=== PATIENT | male | born 1955 | race Caucasian/White ===

== ENCOUNTER 2024-11-17 14:37 | Inpatient (IN) | payer MEDICARE, BC, SELFPAY ==
[2024-11-17 14:44] VITALS: BP 123/75; PULSE 98; TEMP 36.9; O2SAT 97; BMI 22.2
--- NOTE | 2024-11-17 15:18 | ED.GENADUL1 ---
HPI HPI - General Adult General Chief complaint: Extremity Problem, Nontraumatic Stated complaint: R ANKLE SWELLING Time Seen by Provider: 11/17/24 15:12 Source: patient Mode of arrival: Wheelchair History of Present Illness HPI narrative: Patient is a 68-year-old male who has insulin-dependent diabetes that presents to the emergency department with complaints of 3 days of right ankle swelling and redness. He denies any trauma, scratches, abrasions, or wounds. He states he was watching football on Friday and woke up and his ankle look like this. The redness has not increased in 3 days. He denies any history of blood clots and does not take any antiplatelets or anticoagulation. He has not had any recent surgery and is not on any hormones. He denies any fever, night sweats, or chills at home. Related Data Home Medications ?Medication ?Instructions ?Recorded ?Confirmed folic acid 400 mcg DAILY 11/17/24 insulin degludec 100 unit/mL (3 50 unit subcut DAILY 11/17/24 11/17/24 mL) subcutaneous pen (Tresiba FlexTouch U-100 insulin) lisinopril 10 mg tablet 10 mg PO DAILY 11/17/24 11/17/24 methotrexate sodium 2.5 mg tablet 10 mg PO QWEEK 11/17/24 multivitamin-ferrous 1 tab PO DAILY 11/17/24 11/17/24 fumarate-folic acid 18 mg-400 mcg tablet (Daily Vitamin Formula-Iron) rosuvastatin 20 mg tablet (Crestor) 20 mg PO DAILY 11/17/24 11/17/24 sertraline 100 mg tablet 100 mg PO DAILY 11/17/24 Allergies Allergy/AdvReac Type Severity Reaction Status Date / Time No Known Drug Allergies Allergy Verified 11/17/24 14:49 Review of Systems ROS Status of ROS 10 or more systems reviewed and unremarkable except as noted in history and below [facility] Medical History (Updated 11/17/24 @ 18:27 by ROXY Albrecht) Neuropathy ?G62.9 - Polyneuropathy, unspecified (ICD-10) Skin cancer ?C44.90 - Unspecified malignant neoplasm of skin, unspecified (ICD-10) 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 No rash. Head: Normocephalic, atraumatic. Neck: Supple, non-tender. Eye: Pupils are equal, round and EOMI. No scleral icterus. Ears, Nose, Mouth, and Throat: No nasal mucosal hypertrophy. Oral mucosa is moist, no posterior oropharynx erythema, uvula is mid-line Cardiovascular: Regular Rate and Rhythm without murmur, gallop or rub. Respiratory: No accessory muscle use or respiratory distress. Lungs are clear to auscultation, no wheezing, rales or rhonchi Chest Wall: no tenderness Musculoskeletal: Full ROM of all extremities, edema right lower extremity starting at about the asif to the midfoot, erythema at the ankle medially that wraps around the heel, does not involve much of the foot. Pain with palpation of the right calf. No palpable cords. GI: Abdomen is soft, non-distended, non tender to palpation. No masses appreciated. No rebound, guarding, or rigidity noted. Neurological: A&O x4. No cranial nerve dysfunction observed. No truncal ataxia. Moves all extremities. Sensation intact. Psychiatric: Cooperative and interactive. Normal mood and affect. Constitutional Vital Signs, click to edit/add: Last Vital Signs Temp 98.4 F 11/17/24 14:44 Pulse 98 H 11/17/24 14:44 Resp 18 11/17/24 14:44 BP 123/75 11/17/24 14:44 Pulse Ox 97 11/17/24 14:44 O2 Del Method Room Air 11/17/24 14:44 Course Vital Signs Vital signs: Vital Signs Temperature 98.4 F 11/17/24 14:44 Pulse Rate 98 H 11/17/24 14:44 Respiratory Rate 18 11/17/24 14:44 Blood Pressure 123/75 11/17/24 14:44 Pulse Oximetry 97 11/17/24 14:44 Oxygen Delivery Method Room Air 11/17/24 14:44 Temperature 98.4 F 11/17/24 14:44 Pulse Rate 98 H 11/17/24 14:44 Respiratory Rate 18 11/17/24 14:44 Blood Pressure 123/75 11/17/24 14:44 Pulse Oximetry 97 11/17/24 14:44 Oxygen Delivery Method Room Air 11/17/24 14:44 Medical Decision Making [facility] Narrative Medical decision making narrative: This is a 68-year-old male insulin dependent diabetic that presented to the emergency department with complaints of 3 days of right ankle erythema and swelling. He denies any trauma, scratches, abrasions, or wounds to the leg. He denies any fever, night sweats, or chills. On Friday the redness appeared to the medial side of his ankle and he states has not changed/increased/spread since then. On exam patient is in no distress, sitting up on the ED cart. Vitals are stable. Temperature is afebrile at 98.4. There is unilateral edema in the right lower leg starting about mid asif into the foot. There is erythema medially at the ankle that extends to the top of the heel somewhat. There is pain with palpation of the calf, no palpable cords. CBC/BMP and RLE Doppler ultrasound ordered. Differential diagnosis includes: Cellulitis, DVT, gout, septic arthritis, Charcot joint Ultrasound of the right lower extremity with a nonocclusive thrombus seen in the deep femoral vein, as well as the saphenofemoral junction and proximal to mid calf small saphenous vein. I did discuss labs and imaging results with patient and his at bedside. All questions were answered. We are recommending admission for IV antibiotics and patient is agreeable. I did speak with Dr. Looney who accepted patient for observation status. Right lower extremity cellulitis - Started 3 days ago, no wounds, scratches, abrasions, or trauma - X-ray of right foot?no subcutaneous air, no signs of acute osteomyelitis - Afebrile - WBC 18.3, left shift - Lactate WNL at 1.3 - Blood cultures drawn - Vital stable during ED course - Dose of Vanco given in emergency department DVT - Nonocclusive thrombus deep femoral vein, saphenofemoral junction and proximal to mid calf small saphenous vein - Hgb on arrival 11.6 - Dose of Lovenox given in ED 1 mg/kg = 70 JOSE - BUN/CR: 33/1.65 - Per baseline is within normal limits, patient has had issues with his kidney function in the past secondary to his diabetes -1 L normal saline given in ED Hyponatremia -NA 132 Patient's vitals remained stable in the emergency department. Patient admitted to medicine for IV antibiotics, anticoagulation, and monitoring of renal function. Lab Data Lab results reviewed: Yes I reviewed the patient's lab results Labs: Lab Results 11/17/24 Range/Units 16:14 WBC 18.3 H (4.0-11.0) 10^3/uL RBC 4.18 L (4.70-6.10) 10^6/uL Hgb 11.6 L (14.0-18.0) g/dL Hct 34.8 L (42.0-54.0) % MCV 83.3 (80.0-94.0) fL MCH 27.8 (25.9-34.0) pg MCHC 33.3 (29.9-35.2) g/dL RDW 12.3 (11.0-15.0) % Plt Count 357 (150-450) 10^3/uL MPV 8.8 L (9.5-13.5) fL Neut % (Auto) 84.3 H (43.0-75.0) % Lymph % (Auto) 6.8 L (20.5-60.0) % [place] % (Auto) 7.8 (1.7-12.0) % Eos % (Auto) 0.2 L (0.9-7.0) % Baso % (Auto) 0.3 (0.2-2.0) % Neut # (Auto) 15.5 H (1.4-6.5) 10^3/uL Lymph # (Auto) 1.3 (1.2-3.8) 10^3/uL [place] # (Auto) 1.4 H (0.3-0.8) 10^3/uL Eos # (Auto) 0.0 (0.0-0.7) 10^3/uL Baso # (Auto) 0.1 (0.0-0.1) 10^3/uL Abs Immat Gran (auto) 0.11 H (0.00-0.03) 10^3/uL Imm/Tot Granulo (auto) 0.6 H (0.0-0.5) % Sodium 132 L (136-145) mmol/L Potassium 4.4 (3.5-5.1) mmol/L Chloride 96 L (98-107) mmol/L Carbon Dioxide 25.6 (21.0-32.0) mmol/L Anion Gap 14.8 BUN 33.0 H (7.0-18.0) mg/dL Creatinine 1.65 H (0.70-1.30) mg/dL Est GFR ( Amer) 50 L (>=60 mL/min/1.73m^2) Est GFR (Non-Af Amer) 42 L (>=60 mL/min/1.73m^2) BUN/Creatinine Ratio 20.0 Glucose 180 H (74-106) mg/dL Lactate 1.3 (0.4-2.0) mmol/L Calcium 9.0 (8.5-10.1) mg/dL Total Bilirubin 0.6 (0.2-1.0) mg/dL AST 14 L (15-37) U/L ALT 18 (16-63) U/L Alkaline Phosphatase 99 (46-116) U/L Total Protein 8.1 (6.4-8.2) g/dL Albumin 2.4 L (3.4-5.0) g/dL Globulin 5.7 g/dL Albumin/Globulin Ratio 0.4 Imaging Data Right Foot X-Ray: Attestation: I have reviewed the pertinent imaging results. Radiologist's impression: ITS Impressions Foot X-Ray 11/17/24 16:55 IMPRESSION: No plain film findings of acute osteomyelitis. Impression dictated by: Kamran Hearn M.D. 11/17/2024 6:00 PM Dictation Location: [place] [address] Electronically authenticated by: [id number] Y Date: 11/17/2024 18:00 Discharge Plan Discharge Chief Complaint: Extremity Problem, Nontraumatic Clinical Impression: Cellulitis, Deep vein thrombosis of lower extremity, JOSE (acute kidney injury) Patient Disposition: Admitted as Observation Time of Disposition Decision: 18:27 Condition: Fair
[2024-11-17 16:20] LABS: Hematocrit 34.8 % (42.0-54.0); Hemoglobin 11.6 g/dL (14.0-18.0); Immature Granulocytes Abs Auto 0.11 10^3/uL (0.00-0.03); Immature Granulocytes Pct Auto 0.6 % (0.0-0.5); Lymphocytes Absolute Auto 1.3 10^3/uL (1.2-3.8); Mean Corpuscular HGB Conc 33.3 g/dL (29.9-35.2); Mean Corpuscular Hemoglobin 27.8 pg (25.9-34.0); Mean Corpuscular Volume 83.3 fL (80.0-94.0); Platelet Count 357 10^3/uL (150-450); Red Blood Count 4.18 10^6/uL (4.70-6.10); White Blood Count 18.3 10^3/uL (4.0-11.0)
[2024-11-17 16:46] LABS: Alanine Aminotransferase 18 U/L (16-63); Albumin Globulin Ratio 0.4; Albumin Level 2.4 g/dL (3.4-5.0); Alkaline Phosphatase 99 U/L (46-116); Anion Gap 14.8; Aspartate Amino Transferase 14 U/L (15-37); Blood Urea Nitrogen 33.0 mg/dL (7.0-18.0); Calcium 9.0 mg/dL (8.5-10.1); Carbon Dioxide 25.6 mmol/L (21.0-32.0); Chloride 96 mmol/L (98-107); Estimated GFR (African America 50 (>=60 mL/min/1.73m^2); Estimated GFR (Non-African Ame 42 (>=60 mL/min/1.73m^2); Globulin 5.7 g/dL; Glucose 180 mg/dL (74-106); Potassium 4.4 mmol/L (3.5-5.1); Sodium 132 mmol/L (136-145); Total Protein 8.1 g/dL (6.4-8.2)
--- NOTE | 2024-11-17 16:55 | XR_ITS ---
[address] [address] Patient Name: CODIE GROSS MRN: [id number] date: 1955 Sex: M Assigned Patient Location: ER Current Patient Location: ER Accession/Order Number: [id number] Exam Date: 11/17/2024 17:23 Report Date: 11/17/2024 18:00 At the request of: MAYURI RAMSEY Procedure: XR foot RT min 3V 3 views right foot plain film COMPARISON:None HISTORY: Right foot pain and swelling. 3 days duration. ACUTE FINDINGS: Old fracture involving the second metatarsal. DEGENERATIVE CHANGE: Calcaneal spurring moderate degenerative change SOFT TISSUE FINDINGS: No subcutaneous air. No radiodense foreign body. JOINT EFFUSION: None POSTOP CHANGES: None BONE MINERALIZATION: Adequate XR/XR foot RT min 3V IMPRESSION: No plain film findings of acute osteomyelitis. Impression dictated by: Kamran Hearn M.D. 11/17/2024 6:00 PM Dictation Location: [place] [address] Electronically authenticated by: [id number] Y Date: 11/17/2024 18:00
[2024-11-17 17:26] LABS: Lactate/Lactic Acid 1.3 mmol/L (0.4-2.0)
[2024-11-17] MEDS: 0.9 % SODIUM CHLORIDE 1,000 ML 1000 ML IV (17:45)
[2024-11-17] MEDS: VANCOMYCIN HCL 1,500 MG in 0.9 % SODIUM CHLORIDE 500 ML 250 MG IV (18:16)
[2024-11-17 18:33] VITALS: BP 137/67; PULSE 97; TEMP 37.7; O2SAT 95
[2024-11-17 18:34] VITALS: O2SAT 95
--- NOTE | 2024-11-17 19:55 | PC.NURSE ---
Report called to Natalya ROSE. Pt up to room per cart per Walker Nurse Transit Planning Manager.
[2024-11-17 20:13] VITALS: BP 128/66; PULSE 101; TEMP 37.7; O2SAT 92; BMI 20.8
[2024-11-17] MEDS: 0.9 % SODIUM CHLORIDE 1,000 ML 125 ML IV (22:12)
[2024-11-17] MEDS: CEFAZOLIN SODIUM/DEXTROSE,ISO 1 GM/50 ML PREMIX IV (22:13)
[2024-11-17] MEDS: INSULIN ASPART 300 UNIT/3 ML PEN SUBQ (22:17)
[2024-11-17] MEDS: APIXABAN 5 MG TABLET 10 MG PO (22:37)
[2024-11-18] VITALS (7 sets, daily range): BP systolic 130–147; BP diastolic 60–67; PULSE 76–92; TEMP 36.9–38.1; O2SAT 93–94
[2024-11-18] MEDS: CEFAZOLIN SODIUM/DEXTROSE,ISO 1 GM/50 ML PREMIX IV ×3 (04:53→22:15)
[2024-11-18 05:42] LABS: Hematocrit 28.9 % (42.0-54.0); Hemoglobin 9.6 g/dL (14.0-18.0); Immature Granulocytes Abs Auto 0.04 10^3/uL (0.00-0.03); Immature Granulocytes Pct Auto 0.3 % (0.0-0.5); Lymphocytes Absolute Auto 1.3 10^3/uL (1.2-3.8); Mean Corpuscular HGB Conc 33.2 g/dL (29.9-35.2); Mean Corpuscular Hemoglobin 27.4 pg (25.9-34.0); Mean Corpuscular Volume 82.6 fL (80.0-94.0); Platelet Count 281 10^3/uL (150-450); Red Blood Count 3.50 10^6/uL (4.70-6.10); White Blood Count 12.9 10^3/uL (4.0-11.0)
[2024-11-18 06:03] LABS: Alanine Aminotransferase 10 U/L (16-63); Albumin Globulin Ratio 0.4; Albumin Level 1.8 g/dL (3.4-5.0); Alkaline Phosphatase 77 U/L (46-116); Anion Gap 13.6; Aspartate Amino Transferase 15 U/L (15-37); Blood Urea Nitrogen 26.0 mg/dL (7.0-18.0); Calcium 7.9 mg/dL (8.5-10.1); Carbon Dioxide 21.5 mmol/L (21.0-32.0); Chloride 104 mmol/L (98-107); Estimated GFR (African America >60 (>=60 mL/min/1.73m^2); Estimated GFR (Non-African Ame 55 (>=60 mL/min/1.73m^2); Globulin 4.6 g/dL; Glucose 146 mg/dL (74-106); Potassium 4.1 mmol/L (3.5-5.1); Sodium 135 mmol/L (136-145); Total Protein 6.4 g/dL (6.4-8.2)
[2024-11-18 06:04] LABS: Creatine Kinase 24 U/L (39-308)
[2024-11-18] MEDS: INSULIN ASPART 300 UNIT/3 ML PEN SUBQ ×4 (08:49→22:20)
[2024-11-18] MEDS: INSULIN GLARGINE 300 UNIT/3 ML INSULN.PEN 25 UNIT SQ (08:50)
[2024-11-18] MEDS: APIXABAN 5 MG TABLET 10 MG PO ×2 (08:51→22:15)
--- NOTE | 2024-11-18 12:33 | PM.HP ---
HPI H&P: HPI History of Present Illness Chief complaint: R ANKLE SWELLING, CELLULITUS Narrative: Mr. Romero is a 68-year-old gentleman who came in with pain, swelling and redness involving the right leg at the anterior and medial ankle. Patient was found to have cellulitis and also was found to have DVT involving the right femoral and saphenous vein, nonocclusive. Patient denies any shortness of breath. Denies any prior history of a blood clot. Opioid HPI Opioid Management Most Recent Pain and Opioid Data: Last Pain Scale 4 Today, 07:58 Last Pain Assessment 11/17/24, 21:00 Last ORT Total Score 22 11/17/24, 20:13 Last ORT Risk Category High Risk 11/17/24, 20:13 Review of Systems ROS Status of ROS 10 or more systems reviewed and unremarkable except as noted in history and below [facility] Medical History (Updated 11/17/24 @ 20:41 by Natalya Bob RN) Esophageal stricture ?K22.2 - Esophageal obstruction (ICD-10) Cataracts, both eyes ?H26.9 - Unspecified cataract (ICD-10) Retinopathy ?H35.00 - Unspecified background retinopathy (ICD-10) Iron deficiency ?E61.1 - Iron deficiency (ICD-10) Neuropathy ?G62.9 - Polyneuropathy, unspecified (ICD-10) Skin cancer ?C44.90 - Unspecified malignant neoplasm of skin, unspecified (ICD-10) 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) Diabetes ?E11.9 - Type 2 diabetes mellitus without complications (ICD-10) Surgical History H/O hernia repair ?Z98.890 - Other specified postprocedural states (ICD-10) ?Z87.19 - Personal history of other diseases of the digestive system (ICD-10) Social History Highest level of school completed/degree received: high school graduate Little interest or pleasure in doing things: not at all Feeling down, depressed, or hopeless: not at all Meds Home Medications and Allergies Home Medications ?Medication ?Instructions ?Recorded ?Confirmed ?Type folic acid 400 mcg PO DAILY 10/01/25 10/02/25 History insulin degludec 100 unit/mL (3 50 unit subcut DAILY 11/17/24 11/17/24 History mL) subcutaneous pen (Tresiba FlexTouch U-100 insulin) lisinopril 10 mg tablet 10 mg PO DAILY 11/17/24 11/17/24 History multivitamin-ferrous 1 tab PO DAILY 11/17/24 11/17/24 History fumarate-folic acid 18 mg-400 mcg tablet (Daily Vitamin Formula-Iron) rosuvastatin 20 mg tablet (Crestor) 20 mg PO DAILY 11/17/24 11/17/24 History Allergies Allergy/AdvReac Type Severity Reaction Status Date / Time No Known Drug Allergies Allergy Verified 11/17/24 14:49 Exam Narrative Exam Narrative: [pt is awake and alert. oriented to place, time and person HEENT: [place] conjunctiva and NL buccal mucosa Neck: Supple, no tenderness Endocrine: No Thyromegaly. Vascular: No JVD or carotid bruit. Lymphatic: No cervical lymphadenopathy. Chest: CTA no DTP. Heart RRR, no extra sound or murmur. Abd: Soft, no tenderness, no rebound and no rigidity. Increase abd girth therefore clinically I could not exclude the possibility of intra abd mass or organomegaly. LE: No cyanosis or clubbing, no varices or edema. Erythema, tenderness, induration involving the right lower asif and ankle anteriorly and medially. No clinical evidence of abscess formation. No gangrene or cyanosis in his toes. Palpable dorsalis pedis pulse. Neuro: A A O. Nl speech, comprehension and attention. Nl and symetrical motor and tone examination through out. []] Constitutional Vital Signs, click to edit/add: Last Vital Signs Temp 99.6 F 11/18/24 11:39 Pulse 78 11/18/24 11:39 Resp 20 11/18/24 11:39 BP 130/63 11/18/24 11:39 Pulse Ox 93 L 11/18/24 11:39 O2 Del Method Room Air 11/18/24 11:39 Results Labs Labs: Short CBC 11/17/24 11/18/24 Range/Units 16:14 05:33 WBC 18.3 H 12.9 H (4.0-11.0) 10^3/uL Hgb 11.6 L 9.6 L (14.0-18.0) g/dL Hct 34.8 L 28.9 L (42.0-54.0) % Plt Count 357 281 (150-450) 10^3/uL BMP 11/17/24 11/18/24 16:14 05:33 Sodium 132 L 135 L Potassium 4.4 4.1 Chloride 96 L 104 Carbon Dioxide 25.6 21.5 BUN 33.0 H 26.0 H Creatinine 1.65 H 1.30 Glucose 180 H 146 H Calcium 9.0 7.9 L Cardiac Enzymes 11/18/24 Range/Units 05:33 Total Creatine Kinase 24 L (39-308) U/L Liver Function 11/17/24 11/18/24 Range/Units 16:14 05:33 Total Bilirubin 0.6 0.4 (0.2-1.0) mg/dL AST 14 L 15 (15-37) U/L ALT 18 10 L (16-63) U/L Alkaline Phosphatase 99 77 (46-116) U/L Albumin 2.4 L 1.8 L (3.4-5.0) g/dL Assessment and Plan Assessment and Plan (1) JOSE (acute kidney injury): (2) Deep vein thrombosis of lower extremity: (3) Cellulitis: Plan Right leg cellulitis Sepsis present on admission Sepsis protocol was followed including blood culture, lactic acid measurement, IV fluid and antibiotic. White count is trending down. No clinical evidence of abscess formation. No clinical evidence of acute arterial compromise. Low clinical suspicion of osteomyelitis given the acute single episode of superficial cellulitis Nonocclusive DVT in the femoral and saphenous vein I started patient on Eliquis 10 mg twice a day for 7 days followed by 5 mg twice a day JOSE secondary to sepsis IV fluid infusion, resolved. CPK is normal. Holding his lisinopril Diabetes, insulin-dependent I started the patient on a combination of long-acting as well as sliding scale coverage insulin Titrate to keep blood sugar between 125 and 180. Anemia, no evidence of acute blood loss. Hemoglobin dropped since yesterday is likely due to aggressive hydration No hematemesis or melena. Patient will likely require to have anemia workup to be done in the outpatient setting to be handled by PCP in collaboration with other needed outpatient providers. This may include but not limited to EGD, colonoscopy, referral to see hematology and other needed age-appropriate cancer screening. Risk for PE. Patient denies any chest pain or shortness of breath. Risk is reduced by the initiation of anticoagulation. Justification to screen for or diagnosed pulmonary embolism is soft. Potential increased risk for contrast nephropathy with the contrasted CT. Continue anticoagulation at this time.
--- NOTE | 2024-11-18 12:46 | CM.NOTE ---
[address] Looney for rounds. Will continue IV antibiodics for right lower extremity cellulitis.
--- NOTE | 2024-11-18 13:09 | SWNOTE1 ---
Important Message from [employer] reviewed and discussed with patient. Pt. verbalized understanding and signed the form. Original given to patient and copy placed in patient?s chart.
--- NOTE | 2024-11-18 13:09 | SWNOTE1 ---
SW met with pt to discuss dc needs. Pt lives at home with his . Pt does have a cane at home, but he does not use it. He did voice that he may need to for a short time. Pt does not have any services coming in at this time. At this time pt has no anticipated discharge needs. SW to follow as needed.
[2024-11-18] MEDS: 0.9 % SODIUM CHLORIDE 250 ML 10 ML IV (13:14)
[2024-11-18] MEDS: OXYCODONE HCL 5 MG TABLET PO ×2 (13:18→22:22)
[2024-11-18] MEDS: SENNOSIDES/DOCUSATE SODIUM 1 TAB TABLET PO (22:23)
[2024-11-18] MEDS: POLYETHYLENE GLYCOL 3350 17 GM POWDER PACKET PO (22:23)
[2024-11-18] MEDS: GUAIFENESIN 200 MG/DEXTROMETHORPHAN 20 MG 10 ML UNIT DOSE CUP PO (22:24)
[2024-11-19] VITALS (7 sets, daily range): BP systolic 126–156; BP diastolic 54–77; PULSE 70–83; TEMP 36.8–37.8; O2SAT 93–94
[2024-11-19] MEDS: CEFAZOLIN SODIUM/DEXTROSE,ISO 1 GM/50 ML PREMIX IV (05:03)
[2024-11-19 06:18] LABS: Hematocrit 28.4 % (42.0-54.0); Hemoglobin 9.6 g/dL (14.0-18.0); Mean Corpuscular HGB Conc 33.8 g/dL (29.9-35.2); Mean Corpuscular Hemoglobin 27.8 pg (25.9-34.0); Mean Corpuscular Volume 82.3 fL (80.0-94.0); Platelet Count 266 10^3/uL (150-450); Red Blood Count 3.45 10^6/uL (4.70-6.10); White Blood Count 9.5 10^3/uL (4.0-11.0)
[2024-11-19 06:42] LABS: Anion Gap 13.9; Blood Urea Nitrogen 26.0 mg/dL (7.0-18.0); Calcium 8.2 mg/dL (8.5-10.1); Carbon Dioxide 21.9 mmol/L (21.0-32.0); Chloride 102 mmol/L (98-107); Estimated GFR (African America 60 (>=60 mL/min/1.73m^2); Estimated GFR (Non-African Ame 49 (>=60 mL/min/1.73m^2); Glucose 188 mg/dL (74-106); Potassium 3.8 mmol/L (3.5-5.1); Sodium 134 mmol/L (136-145)
[2024-11-19] MEDS: OXYCODONE HCL 5 MG TABLET PO ×2 (07:58→22:07)
[2024-11-19] MEDS: INSULIN ASPART 300 UNIT/3 ML PEN SUBQ ×4 (07:58→22:09)
[2024-11-19] MEDS: APIXABAN 5 MG TABLET 10 MG PO ×2 (08:00→20:28)
[2024-11-19] MEDS: INSULIN GLARGINE 300 UNIT/3 ML INSULN.PEN 35 UNIT SQ (08:00)
--- NOTE | 2024-11-19 08:40 | CM.NOTE ---
Rounds made with Dr. Looney, discussed plan of care with pt. No discharge today, pt inpatient status.
--- NOTE | 2024-11-19 09:22 | PM.PN ---
Progress Note: Subjective Subjective Interval history: Patient continues to have pain, redness and discomfort in the right leg at the anterior and medial right ankle. Exam Narrative Exam Narrative: [pt is awake and alert. oriented to place, time and person HEENT: [place] conjunctiva and NL buccal mucosa Neck: Supple, no tenderness Endocrine: No Thyromegaly. Vascular: No JVD or carotid bruit. Lymphatic: No cervical lymphadenopathy. Chest: CTA no DTP. Heart RRR, no extra sound or murmur. Abd: Soft, no tenderness, no rebound and no rigidity. Increase abd girth therefore clinically I could not exclude the possibility of intra abd mass or organomegaly. LE: No cyanosis or clubbing, no varices or edema. Erythema, tenderness, induration involving the right lower asif and ankle anteriorly and medially. Patient is able to flex and extend his ankle without any significant difficulties or tenderness making the possibility of septic joint unlikely. No clinical evidence of abscess formation. No gangrene or cyanosis in his toes. Palpable dorsalis pedis pulse. Neuro: A A O. Nl speech, comprehension and attention. Nl and symetrical motor and tone examination through out. []] Constitutional Vital Signs, click to edit/add: Last Vital Signs Temp 99.3 F 11/19/24 08:00 Pulse 77 11/19/24 08:00 Resp 18 11/19/24 08:00 BP 132/61 11/19/24 08:00 Pulse Ox 93 L 11/19/24 08:00 O2 Del Method Room Air 11/19/24 08:00 Progress Note: Objective Labs Labs: Short CBC 11/19/24 Range/Units 06:03 WBC 9.5 (4.0-11.0) 10^3/uL Hgb 9.6 L (14.0-18.0) g/dL Hct 28.4 L (42.0-54.0) % Plt Count 266 (150-450) 10^3/uL BMP 11/19/24 06:03 Sodium 134 L Potassium 3.8 Chloride 102 Carbon Dioxide 21.9 BUN 26.0 H Creatinine 1.42 H Glucose 188 H Calcium 8.2 L Progress Note: A&P Assessment and Plan (1) JOSE (acute kidney injury): (2) Deep vein thrombosis of lower extremity: (3) Cellulitis: Plan Right leg cellulitis Sepsis present on admission Sepsis protocol was followed including blood culture, lactic acid measurement, IV fluid and antibiotic. White count is trending down. No clinical evidence of abscess formation. No clinical evidence of acute arterial compromise. Low clinical suspicion of osteomyelitis given the acute single episode of superficial cellulitis Low clinical suspicion of septic joint. Patient is able to flex and extend ankle without any difficulties. Patient has been on Ancef without significant improvement. Possibility of MRSA exist. I started him on linezolid 600 mg twice a day. Suspicion of Pseudomonas or ESBL is low. Discontinue Ancef, started patient on ceftriaxone to cover gram negative in addition to linezolid to cover MRSA Nonocclusive DVT in the femoral and saphenous vein I started patient on Eliquis 10 mg twice a day for 7 days followed by 5 mg twice a day JOSE secondary to sepsis IV fluid infusion, resolved. CPK is normal. Holding his lisinopril Diabetes, insulin-dependent I started the patient on a combination of long-acting as well as sliding scale coverage insulin Titrate insulin dose to keep blood sugar between 125 and 180. Anemia, no evidence of acute blood loss. Hemoglobin dropped since yesterday is likely due to aggressive hydration No hematemesis or melena. Hemoglobin stable over the last 24 hours Patient will likely require to have anemia workup to be done in the outpatient setting to be handled by PCP in collaboration with other needed outpatient providers. This may include but not limited to EGD, colonoscopy, referral to see hematology and other needed age-appropriate cancer screening. Risk for PE. Patient denies any chest pain or shortness of breath. Risk of PE is reduced significantly by the initiation of anticoagulation. Justification to screen for or diagnosed pulmonary embolism is soft given lack of respiratory symptoms. Potential increased risk for contrast nephropathy with the contrasted CT without strong clinical justification. Continue anticoagulation at this time.
[2024-11-19] MEDS: LINEZOLID 600 MG TABLET PO ×2 (09:36→22:07)
[2024-11-19] MEDS: GUAIFENESIN 200 MG/DEXTROMETHORPHAN 20 MG 10 ML UNIT DOSE CUP PO (17:55)
[2024-11-19] MEDS: ACETAMINOPHEN 325 MG TABLET 650 MG PO (20:29)
[2024-11-20 04:00] VITALS: BP 158/72; PULSE 66; TEMP 36.6; O2SAT 94
[2024-11-20 07:32] VITALS: TEMP 36.6
[2024-11-20 07:35] VITALS: BP 128/71; PULSE 77; O2SAT 96
[2024-11-20] MEDS: APIXABAN 5 MG TABLET 10 MG PO ×2 (08:21→21:38)
[2024-11-20] MEDS: INSULIN GLARGINE 300 UNIT/3 ML INSULN.PEN 35 UNIT SQ (08:21)
[2024-11-20] MEDS: LINEZOLID 600 MG TABLET PO ×2 (08:32→21:38)
[2024-11-20 11:01] VITALS: BP 138/73; PULSE 77; O2SAT 95
[2024-11-20] MEDS: INSULIN ASPART 300 UNIT/3 ML PEN SUBQ ×3 (11:03→21:39)
[2024-11-20] MEDS: GUAIFENESIN 200 MG/DEXTROMETHORPHAN 20 MG 10 ML UNIT DOSE CUP PO (11:05)
--- NOTE | 2024-11-20 15:44 | P.PN_ITS ---
Progress Note: Subjective Subjective Interval history: I saw the patient's in the hallway and she recognized me from a time a few months ago when I admitted the patient to [facility] in [place]. She and I went into the patient's room together. The patient's erythema around his right ankle has not really improved. It has not extended above the marked lines but it has not improved any either. He still has an area of a little bit of a bullous formation back behind his ankle. He also has new outbreak of a sort of blotchy spot on the left side of his scalp which is really very noticeable because he is mostly bald on top. The said that he did not have that spot yesterday. Apparently it came up today after the patient got bathed and was given a shower by the nursing staff. The patient has pain mostly around the ankle where the cellulitis is most intense. There is no draining. There is no fluid drainage and I do not feel any areas of fluctuance under the skin. He is not having fevers or chills. He denies any diarrhea. He denies any dysuria. His appetite is good. I called the pharmacy to see what is stocked here at [place]. [facility] does not stocked up fluoroscopy, which I would use for skin infections like this. And the pharmacist confirmed that the patient has received: Ancef for 3 doses, one dose of IV vancomycin, and now on Zyvox (3 doses) and Rocephin q 24 hours. Exam Narrative Exam Narrative: Skin on the right leg: He does have a moderate erythema around the right ankle extending up towards the right calf which is most pronounced in the medial aspect of the ankle. Obviously bit of swelling of the right calf consistent with the deep vein thrombosis it is higher up in the femoral vein. A little bit of edema in the dorsum of the foot. No areas of leaking or drainage or purulence. Skin: On the rest of his body he has a few areas of dried skin where the patient's chronic long-term skin condition occasionally rubs. None of these are active at this time. Head: He does have a blotchy conglomeration of spots on the scalp on the left. There is a tiny bit of erythema associated with this and there is a very straight line just slightly past the midline of his head where none of this extends on the left side of his scalp. This is not draining any pus. To me it looks a little bit more like a viral irruption than a bacterial soft tissue and skin infection. The patient did not seem to indicate any pain or itching from this. Pulmonary: Clear to auscultation throughout. No wheezing. No rhonchi. No crackles. Cardiac: Regular rate and rhythm. No murmurs or rubs or gallops to auscultation. Constitutional Vital Signs, click to edit/add: Last Vital Signs Temp 97.8 F 11/20/24 07:32 Pulse 77 11/20/24 11:01 Resp 20 11/20/24 11:01 BP 138/73 11/20/24 11:01 Pulse Ox 95 11/20/24 11:01 O2 Del Method Room Air 11/20/24 11:01 Progress Note: A&P Assessment and Plan (1) Cellulitis: (2) Deep vein thrombosis of lower extremity: (3) JOSE (acute kidney injury): Plan Right leg cellulitis Risk of Sepsis..... was present on admission Sepsis protocol was followed including blood culture, lactic acid measurement, IV fluid and antibiotic. Low clinical suspicion of osteomyelitis given the acute single episode of superficial cellulitis Low clinical suspicion of septic joint. Patient is able to flex and extend ankle without any difficulties. Patient got 3 doses of Ancef, 1 dose of IV vancomycin, then 3 doses of Zyvox, and remains on Zyvox and Rocephin 2 g every 24 hours. Nonocclusive DVT in the femoral and saphenous vein New anticoagulation with Eliquis 10 mg twice a day for 7 days followed by 5 mg twice a day JOSE secondary to sepsis IV fluid infusion, resolved. Holding his lisinopril. Will check creatinine again tomorrow. Diabetes, insulin-dependent Using a combination of long-acting as well as sliding scale coverage insulin Titrate insulin dose to keep blood sugar between 125 and 180. Anemia, no evidence of acute blood loss. Hemoglobin dropped in the first 24 hours due to aggressive hydration No hematemesis or melena.
[2024-11-20] MEDS: OXYCODONE HCL 5 MG TABLET PO ×2 (16:00→21:38)
[2024-11-20] MEDS: VALACYCLOVIR HCL 500 MG TABLET 1000 MG PO ×2 (16:03→21:37)
--- NOTE | 2024-11-20 16:29 | PC.NURSE ---
assisted pt with shower. ambulated to bathroom, gait very unsteady. after shower, assisted back to bed with walker and minimal assist.
[2024-11-20 19:39] VITALS: BP 128/72; PULSE 95; TEMP 36.8; O2SAT 95
[2024-11-20 23:40] VITALS: BP 114/53; PULSE 78; TEMP 36.6; O2SAT 96
[2024-11-21 03:40] VITALS: BP 119/61; PULSE 75; TEMP 36.6; O2SAT 95
[2024-11-21] MEDS: VALACYCLOVIR HCL 500 MG TABLET 1000 MG PO ×3 (05:16→21:24)
[2024-11-21 06:43] LABS: Hematocrit 29.3 % (42.0-54.0); Hemoglobin 9.8 g/dL (14.0-18.0); Immature Granulocytes Abs Auto 0.03 10^3/uL (0.00-0.03); Immature Granulocytes Pct Auto 0.4 % (0.0-0.5); Lymphocytes Absolute Auto 2.1 10^3/uL (1.2-3.8); Mean Corpuscular HGB Conc 33.4 g/dL (29.9-35.2); Mean Corpuscular Hemoglobin 27.8 pg (25.9-34.0); Mean Corpuscular Volume 83.2 fL (80.0-94.0); Platelet Count 320 10^3/uL (150-450); Red Blood Count 3.52 10^6/uL (4.70-6.10); White Blood Count 7.7 10^3/uL (4.0-11.0)
[2024-11-21 06:59] LABS: Alanine Aminotransferase 15 U/L (16-63); Albumin Globulin Ratio 0.4; Albumin Level 1.7 g/dL (3.4-5.0); Alkaline Phosphatase 84 U/L (46-116); Anion Gap 13.8; Aspartate Amino Transferase 13 U/L (15-37); Blood Urea Nitrogen 18.0 mg/dL (7.0-18.0); Calcium 8.0 mg/dL (8.5-10.1); Carbon Dioxide 24.2 mmol/L (21.0-32.0); Chloride 103 mmol/L (98-107); Estimated GFR (African America >60 (>=60 mL/min/1.73m^2); Estimated GFR (Non-African Ame 55 (>=60 mL/min/1.73m^2); Globulin 4.8 g/dL; Glucose 177 mg/dL (74-106); Potassium 4.0 mmol/L (3.5-5.1); Sodium 137 mmol/L (136-145); Total Protein 6.5 g/dL (6.4-8.2)
[2024-11-21 07:06] LABS: INR 1.24; Partial Thromboplastin Time 36.8 sec (22.3-36.2); Prothrombin Time 12.9 sec (9.0-11.6)
[2024-11-21 08:00] VITALS: BP 132/76; PULSE 74; TEMP 36.6; O2SAT 94
[2024-11-21] MEDS: APIXABAN 5 MG TABLET 10 MG PO ×2 (08:17→21:24)
[2024-11-21] MEDS: INSULIN ASPART 300 UNIT/3 ML PEN SUBQ ×4 (08:17→21:30)
[2024-11-21] MEDS: INSULIN GLARGINE 300 UNIT/3 ML INSULN.PEN 35 UNIT SQ (08:17)
[2024-11-21] MEDS: LINEZOLID 600 MG TABLET PO ×2 (09:07→21:24)
[2024-11-21] MEDS: OXYCODONE HCL 5 MG TABLET PO (09:42)
[2024-11-21 11:25] VITALS: BP 128/61; PULSE 75; O2SAT 96
--- NOTE | 2024-11-21 15:08 | P.PN_ITS ---
Progress Note: Subjective Subjective Interval history: Today the patient says that he woke up and he could tell that he felt much better. He had a strong appetite and ate all of his breakfast. He has had a good bowel movement. And he notices that the redness and pain and warmth from the cellulitis on his right ankle is much better. On labs he has shown a trend towards improvement. On 11/17 when he was admitted his white blood count was 18.3. Then the next day it was 12.9. Then the next day it was 9.5. He was given a break from lab draws for 1 day. And today his white blood count is even better at 7.7. The strange conglomeration of skin changes on the left side of his scalp looks a little bit better today. It is not itchy. It is not causing pain. The patient said it does not seem to be draining as much as yesterday. I told the patient that my clinical gestalt is that the spots of skin changes on his scalp is from shingles although I admit he does not have the typical shingles pain or itching. And I started him on valacyclovir yesterday so if this improves nicely over the next few days then I am satisfied. I encouraged the patient to get more ambulation. Per the bedside nursing staff he has been resistant of all efforts to get him to ambulate and be out of bed. I when I rounded on him today at 2:45 in the afternoon he was sleeping well a football game was on television. Exam Narrative Exam Narrative: Skin on the right leg: He does have a moderate erythema around the right ankle extending up towards the right calf which is most pronounced in the medial aspect of the ankle. Today this is about 50 % improved. Obviously bit of swelling of the right calf consistent with the deep vein thrombosis it is higher up in the femoral vein. A little bit of edema in the dorsum of the foot. No areas of leaking or drainage or purulence. Skin: On the rest of his body he has a few areas of dried skin where the patient's chronic long-term skin condition occasionally rubs. None of these are active at this time. Head: He does have a blotchy conglomeration of spots on the scalp on the left. There is a tiny bit of erythema associated with this and there is a very straight line just slightly past the midline of his head where none of this extends on the left side of his scalp. This is not draining any pus. To me it looks a little bit more like a viral irruption than a bacterial soft tissue and skin infection. This looks to be about 25% improved from when I saw it yesterday. Pulmonary: Clear to auscultation throughout. No wheezing. No rhonchi. 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 Cardiac: Regular rate and rhythm. No murmurs or rubs or gallops to auscultation. GI: Abdomen soft, normal bowel sounds to auscultation. Constitutional Vital Signs, click to edit/add: Last Vital Signs Temp 97.8 F 11/21/24 08:00 Pulse 75 11/21/24 11:25 Resp 18 11/21/24 11:25 BP 128/61 11/21/24 11:25 Pulse Ox 96 11/21/24 11:25 O2 Del Method Room Air 11/21/24 11:25 Progress Note: Objective Labs Labs: Short CBC 11/21/24 Range/Units 06:27 WBC 7.7 (4.0-11.0) 10^3/uL Hgb 9.8 L (14.0-18.0) g/dL Hct 29.3 L (42.0-54.0) % Plt Count 320 (150-450) 10^3/uL BMP 11/21/24 06:27 Sodium 137 Potassium 4.0 Chloride 103 Carbon Dioxide 24.2 BUN 18.0 Creatinine 1.29 Glucose 177 H Calcium 8.0 L Liver Function 11/21/24 Range/Units 06:27 Total Bilirubin 0.2 (0.2-1.0) mg/dL AST 13 L (15-37) U/L ALT 15 L (16-63) U/L Alkaline Phosphatase 84 (46-116) U/L Albumin 1.7 L (3.4-5.0) g/dL Progress Note: A&P Assessment and Plan (1) Cellulitis: (2) Deep vein thrombosis of lower extremity: (3) JOSE (acute kidney injury): (4) Shingles: Plan Right leg cellulitis Risk of Sepsis..... was present on admission Sepsis protocol was followed including blood culture, lactic acid measurement, IV fluid and antibiotic. Low clinical suspicion of osteomyelitis given the acute single episode of superficial cellulitis Low clinical suspicion of septic joint. Patient is able to flex and extend ankle without any difficulties. Patient got 3 doses of Ancef, 1 dose of IV vancomycin, then 3 doses of Zyvox, and remains on Zyvox and Rocephin 2 g every 24 hours. IN-Hospital development of scalp skin changes on the left side. Clinically I suspect this is an atypical presentation of shingles. Continue the valacyclovir 1000 g p.o. 3 times daily that was started on 11/20/2024 Nonocclusive (but long and extensive) DVT in the femoral and saphenous vein New anticoagulation with Eliquis 10 mg twice a day for 7 days followed by 5 mg twice a day Has had some in-hospital epistaxis. Patient cautioned to only use [place] nasal saline rinses on his nose. JOSE secondary to sepsis, present on admission IV fluid infusion was given, resolved on further lab work. Holding his lisinopril. Diabetes, insulin-dependent A1C uncontrolled at 9.5 Using a combination of long-acting as well as sliding scale coverage insulin Titrate insulin dose to keep blood sugar between 125 and 180. Anemia, no evidence of acute blood loss. Hemoglobin dropped in the first 24 hours due to aggressive hydration No hematemesis or melena.
[2024-11-21 15:55] VITALS: BP 126/61; PULSE 77; TEMP 36.9; O2SAT 95
[2024-11-21 20:00] VITALS: BP 164/73; PULSE 89; TEMP 36.4; O2SAT 96
[2024-11-22] VITALS: BP 128/68; PULSE 82; TEMP 36.7; O2SAT 94
[2024-11-22 04:00] VITALS: BP 154/69; PULSE 73; TEMP 36.6; O2SAT 95
[2024-11-22] MEDS: VALACYCLOVIR HCL 500 MG TABLET 1000 MG PO ×3 (06:12→21:40)
[2024-11-22 06:39] LABS: Alanine Aminotransferase 16 U/L (16-63); Albumin Globulin Ratio 0.4; Albumin Level 1.8 g/dL (3.4-5.0); Alkaline Phosphatase 82 U/L (46-116); Anion Gap 12.2; Aspartate Amino Transferase 16 U/L (15-37); Blood Urea Nitrogen 21.0 mg/dL (7.0-18.0); Calcium 8.8 mg/dL (8.5-10.1); Carbon Dioxide 26.2 mmol/L (21.0-32.0); Chloride 104 mmol/L (98-107); Estimated GFR (African America >60 (>=60 mL/min/1.73m^2); Estimated GFR (Non-African Ame 53 (>=60 mL/min/1.73m^2); Globulin 5.1 g/dL; Glucose 166 mg/dL (74-106); Potassium 4.4 mmol/L (3.5-5.1); Sodium 138 mmol/L (136-145); Total Protein 6.9 g/dL (6.4-8.2)
[2024-11-22 07:52] VITALS: BP 151/71; PULSE 75; TEMP 36.8; O2SAT 94
[2024-11-22] MEDS: INSULIN ASPART 300 UNIT/3 ML PEN SUBQ ×3 (07:54→21:38)
[2024-11-22] MEDS: OXYCODONE HCL 5 MG TABLET PO (07:58)
--- NOTE | 2024-11-22 08:30 | CM.NOTE ---
Rounds made with Dr. Looney, discussed plan of care with pt. Possible discharge to home tomorrow.
[2024-11-22] MEDS: LINEZOLID 600 MG TABLET PO ×2 (09:01→21:39)
[2024-11-22] MEDS: APIXABAN 5 MG TABLET 10 MG PO ×2 (09:01→21:39)
[2024-11-22] MEDS: INSULIN GLARGINE 300 UNIT/3 ML INSULN.PEN 35 UNIT SQ (09:01)
--- NOTE | 2024-11-22 09:15 | MR_ITS ---
[address] [address] Patient Name: CODIE GROSS MRN: [id number] date: 1955 Sex: M Assigned Patient Location: [place] Current Patient Location: [place] Accession/Order Number: [id number] Exam Date: 11/22/2024 12:30 Report Date: 11/22/2024 14:31 At the request of: JACIEL ECHOLS MD Procedure: MR ankle RT wo con MR ankle RT wo con 11/22/2024 1:41 PM SIGNS AND SYMPTOMS: Acute right ankle pain with redness and swelling PROTOCOL: Multiplanar multisequence MR images of the right ankle without contrast COMPARISON: None FINDINGS: Alignment: Normal. Fluid: Tibiotalar: No joint effusion. Subtalar: No joint effusion. Medial: Medial malleolus: Intact. Tendons: Posterior tibial tendon: Intact. Flexor digitorum longus: Intact. Flexor hallucis longus: Intact. Ligaments: Deltoid ligament complex - superficial: Intact. Deltoid ligament complex - deep: Intact. Spring (plantar calcaneo-navicular) ligament: Intact. Lateral: Lateral malleolus: Normal. Retromalleolar groove: Normal. Tendons: Peroneus longus: Intact. Peroneus brevis: Intact. Peroneal retinaculum: Intact. Ligaments: Anterior inferior tibiofibular (syndesmosis): Intact. Posterior inferior tibiofibular (syndesmosis): Intact. Anterior talofibular ligament: Intact. Calcaneofibular ligament: Intact. Posterior talofibular ligament: Intact. Posterior: Posterior talus: Normal. Intermalleolar ligament: Intact. Achilles tendon: Intact. Plantar fascia: Intact. Anterior: Tendons: Anterior tibial tendon: Intact. Extensor hallucis longus: Intact. Extensor digitorum longus: Intact. Tibiotalar joint: Intact. Subtalar joint: Intact. Bones (other than subarticular marrow): Normal Muscles: There is edema within the musculature of the lower leg and visualized intrinsic musculature of the foot consistent with mild myositis. Tarsal tunnel: Normal Sinus tarsi: Normal. MR/MR ankle RT wo con IMPRESSION: Findings suggest cellulitis and myositis. No MR evidence of osteomyelitis. Impression dictated by: Krishna Mueller M.D. 11/22/2024 2:31 PM Dictation Location: [place] [address] Electronically authenticated by: [id number] Y Date: 11/22/2024 14:31
--- NOTE | 2024-11-22 09:17 | P.PN_ITS ---
Progress Note: Subjective Subjective Interval history: Improvement of pain and discomfort in the right ankle. No chest pain or palpitation. No abdominal pain, nausea vomiting Exam Narrative Exam Narrative: [pt is awake and alert. oriented to place, time and person HEENT: [place] conjunctiva and NL buccal mucosa Neck: Supple, no tenderness Endocrine: No Thyromegaly. Vascular: No JVD or carotid bruit. Lymphatic: No cervical lymphadenopathy. Chest: CTA no DTP. Heart RRR, no extra sound or murmur. Abd: Soft, no tenderness, no rebound and no rigidity. Increase abd girth therefore clinically I could not exclude the possibility of intra abd mass or organomegaly. LE: No cyanosis or clubbing, no varices or edema. Improvement of the erythema, tenderness, induration involving the right lower asif and ankle anteriorly and medially. Patient is able to flex and extend his ankle without any significant difficulties or tenderness making the possibility of septic joint unlikely. No clinical evidence of abscess formation. No gangrene or cyanosis in his toes. Palpable dorsalis pedis pulse. Neuro: A A O. Nl speech, comprehension and attention. Nl and symetrical motor and tone examination through out. []] Constitutional Vital Signs, click to edit/add: Last Vital Signs Temp 98.2 F 11/22/24 07:52 Pulse 75 11/22/24 07:52 Resp 20 11/22/24 07:52 BP 151/71 H 11/22/24 07:52 Pulse Ox 94 L 11/22/24 07:52 O2 Del Method Room Air 11/22/24 07:52 Progress Note: Objective Labs Labs: [facility] 11/22/24 06:09 Sodium 138 Potassium 4.4 Chloride 104 Carbon Dioxide 26.2 BUN 21.0 H Creatinine 1.34 H Glucose 166 H Calcium 8.8 Liver Function 11/22/24 Range/Units 06:09 Total Bilirubin 0.1 L (0.2-1.0) mg/dL AST 16 (15-37) U/L ALT 16 (16-63) U/L Alkaline Phosphatase 82 (46-116) U/L Albumin 1.8 L (3.4-5.0) g/dL Progress Note: A&P Assessment and Plan (1) Cellulitis: (2) Deep vein thrombosis of lower extremity: (3) JOSE (acute kidney injury): (4) Shingles: Plan Right leg cellulitis Sepsis present on admission Sepsis protocol was followed including blood culture, lactic acid measurement, IV fluid and antibiotic. White count is trending down. No clinical evidence of abscess formation. No clinical evidence of acute arterial compromise. Low clinical suspicion of osteomyelitis given the acute single episode of superficial cellulitis Low clinical suspicion of septic joint. Patient is able to flex and extend ankle without any difficulties. Patient has been on Ancef without significant improvement. Possibility of MRSA exist. I started him on linezolid 600 mg twice a day. Suspicion of Pseudomonas or ESBL is low. Discontinue Ancef, started patient on ceftriaxone to cover gram negative in addition to linezolid to cover MRSA Due to persistent and very slow improvement of his cellulitis I requested MRI to rule out abscess formation or osteomyelitis. Nonocclusive DVT in the femoral and saphenous vein I started patient on Eliquis 10 mg twice a day for 7 days followed by 5 mg twice a day JOSE secondary to sepsis IV fluid infusion, resolved. CPK is normal. Resume lisinopril at small dose Hypertension BP is climbing up. Resume lisinopril at small dose Diabetes, insulin-dependent I started the patient on a combination of long-acting as well as sliding scale coverage insulin Titrate insulin dose to keep blood sugar between 125 and 180. Anemia, no evidence of acute blood loss. Hemoglobin dropped since yesterday is likely due to aggressive hydration No hematemesis or melena. Hemoglobin stable over the last 24 hours Patient will likely require to have anemia workup to be done in the outpatient setting to be handled by PCP in collaboration with other needed outpatient providers. This may include but not limited to EGD, colonoscopy, referral to see hematology and other needed age-appropriate cancer screening. Risk for PE. Patient denies any chest pain or shortness of breath. Risk of PE is reduced significantly by the initiation of anticoagulation. Justification to screen for or diagnosed pulmonary embolism is soft given lack of respiratory symptoms. Potential increased risk for contrast nephropathy with the contrasted CT without strong clinical justification. Continue anticoagulation at this time. Chronic, subacute medical conditions not listed above, abnormal labs and imaging. These would need to be addressed. Could be addressed later on or in the outpatient setting by PCP collaboration with other needed outpatient providers when time and condition are appropriate.
[2024-11-22] MEDS: LISINOPRIL 5 MG TABLET PO (09:32)
[2024-11-22 11:20] VITALS: BP 149/78; PULSE 78; TEMP 36.8; O2SAT 97
[2024-11-22 20:00] VITALS: BP 150/66; PULSE 77; TEMP 36.6; O2SAT 96
[2024-11-23] VITALS: BP 152/71; PULSE 74; TEMP 36.6; O2SAT 96
[2024-11-23 03:56] VITALS: BP 146/72; PULSE 73; TEMP 36.7; O2SAT 96
[2024-11-23] MEDS: VALACYCLOVIR HCL 500 MG TABLET 1000 MG PO (05:58)
[2024-11-23 07:57] VITALS: BP 155/78; PULSE 74; TEMP 36.4; O2SAT 95
[2024-11-23] MEDS: LISINOPRIL 5 MG TABLET PO (08:29)
[2024-11-23] MEDS: APIXABAN 5 MG TABLET 10 MG PO (08:29)
[2024-11-23] MEDS: LINEZOLID 600 MG TABLET PO (08:29)
[2024-11-23] MEDS: INSULIN GLARGINE 300 UNIT/3 ML INSULN.PEN 40 UNIT SQ (08:30)
--- NOTE | 2024-11-23 08:59 | SWNOTE1 ---
2nd notice of Important Message from Medicare reviewed and discussed with pt. No questions or concerns at this time.
--- NOTE | 2024-11-23 10:25 | CM.NOTE ---
Rounds made with . Plan is for discharge today. Pt to follow up with PCP after discharge.
--- NOTE | 2024-11-23 12:08 | PM.DS1 ---
DS: Providers Provider Date of admission: 11/18/24 08:29 Primary care physician: KENNY MASTERSON Consults: 11/17/24 Consult to Dietitian Routine Reason for consultation: weight loss DS: Diagnosis Discharge Diagnosis (1) Cellulitis: (2) Deep vein thrombosis of lower extremity: (3) JOSE (acute kidney injury): Plan As listed above, below and others that are not listed DS: Summary Hospital Course Hospital Course: Mr. Stroud is a 68-year-old gentleman who came in with pain, redness and swelling involving the right ankle and was found to have the following: Right leg cellulitis Sepsis present on admission Sepsis protocol was followed including blood culture, lactic acid measurement, IV fluid and antibiotic. White count is trending down. No clinical evidence of abscess formation. No clinical evidence of acute arterial compromise. Low clinical suspicion of osteomyelitis given the acute single episode of superficial cellulitis Low clinical suspicion of septic joint. Patient is able to flex and extend ankle without any difficulties. Patient has been on Ancef without significant improvement. Possibility of MRSA exist. I started him on linezolid 600 mg twice a day. Suspicion of Pseudomonas or ESBL is low. Discontinue Ancef, started patient on ceftriaxone to cover gram negative in addition to linezolid to cover MRSA Due to persistent and very slow improvement of his cellulitis I requested MRI to rule out abscess formation or osteomyelitis. MRI came back negative for osteomyelitis. Significant resolution and improvement of erythema, induration and tenderness involving the right ankle over the last 48 hours. Patient will be discharged home on oral doxycycline Nonocclusive DVT in the femoral and saphenous vein I started patient on Eliquis 10 mg twice a day for 7 days followed by 5 mg twice a day JOSE secondary to sepsis IV fluid infusion, resolved. CPK is normal. Resume the lisinopril Hypertension BP is climbing up. Resume lisinopril at small dose increase dose up to 10 mg daily on discharge.. Diabetes, insulin-dependent I started the patient on a combination of long-acting as well as sliding scale coverage insulin Titrate insulin dose to keep blood sugar between 125 and 180. Instructions: Check your blood sugar 3 times a day before meals. Document these numbers on a blood glucose log and bring them with you to your follow-up appointment with your primary care doctor. Communicate with your primary care doctor or web application dev specialist if your blood sugar is under 100 or above 300 on 2 consecutive checks. Communicate with your primary care doctor or web application dev specialist if you have any questions about your diabetes medications. Signs of a low blood sugar include sweating, racing heart, dizziness and/or weakness. Check your blood sugar if you have any of the symptoms. Anemia, no evidence of acute blood loss. Hemoglobin dropped since yesterday is likely due to aggressive hydration No hematemesis or melena. Hemoglobin stable over the last 24 hours Patient will likely require to have anemia workup to be done in the outpatient setting to be handled by PCP in collaboration with other needed outpatient providers. This may include but not limited to EGD, colonoscopy, referral to see hematology and other needed age-appropriate cancer screening. Risk for PE. Patient denies any chest pain or shortness of breath. Risk of PE is reduced significantly by the initiation of anticoagulation. Justification to screen for or diagnosed pulmonary embolism is soft given lack of respiratory symptoms. Potential increased risk for contrast nephropathy with the contrasted CT without strong clinical justification. Continue anticoagulation at this time. Chronic, subacute medical conditions not listed above, abnormal labs and imaging. These would need to be addressed. Could be addressed later on or in the outpatient setting by PCP collaboration with other needed outpatient providers when time and condition are appropriate. Patient has multiple complex medical issues as listed above and others that are not listed. All appear to be stable. I do not have any clear or strong clinical justification to extend inpatient hospitalization. Patient however will require close and frequent monitoring as well as additional work-up, investigation and therapeutic intervention that could take place from this point on post discharge. That is to prevent relapse, decompensation, rehospitalization and other medical implications.. I instructed patient to ask her primary care doctor to obtain [facility] record entirely to address abnormalities seen on labs and imaging that I have and have not addressed during this hospitalization, follow-up on pending blood work, imaging and pathology is if available and to follow-up on needed medical care in the outpatient setting. Time Spent with Patient Time attestation: Total time spent providing and/or coordinating discharge services: Exam Narrative Exam Narrative: [pt is awake and alert. oriented to place, time and person HEENT: [place] conjunctiva and NL buccal mucosa Neck: Supple, no tenderness Endocrine: No Thyromegaly. Vascular: No JVD or carotid bruit. Lymphatic: No cervical lymphadenopathy. Chest: CTA no DTP. Heart RRR, no extra sound or murmur. Abd: Soft, no tenderness, no rebound and no rigidity. Increase abd girth therefore clinically I could not exclude the possibility of intra abd mass or organomegaly. LE: No cyanosis or clubbing, no varices or edema. Significant resolution of erythema, induration and tenderness of the right ankle compared to the weekend Neuro: A A O. Nl speech, comprehension and attention. Nl and symetrical motor and tone examination through out. []] Constitutional Vital Signs, click to edit/add: Last Vital Signs Temp 97.6 F 11/23/24 07:57 Pulse 74 11/23/24 07:57 Resp 18 11/23/24 07:57 BP 155/78 H 11/23/24 07:57 Pulse Ox 95 11/23/24 07:57 O2 Del Method Room Air 11/23/24 11:52 DS: Data Data Completed and Pending Labs on day of discharge: Labs from last 24 hours 11/23/24 11/22/24 11/22/24 07:25 21:33 16:31 POC Glucose 104 267 H 305 H Preliminary micro results at discharge 11/17/24 17:08 Blood Culture Result 2 - Preliminary Blood NO GROWTH AT 36-48 HOURS. FINAL TO FOLLOW. 11/17/24 16:14 Blood Culture Result 1 - Preliminary Blood NO GROWTH AT 36-48 HOURS. FINAL TO FOLLOW. Discharge Plan Discharge Disposition: Home, Self-Care Condition: Fair Discharge Medications: New Eliquis 5 mg Tablet 5 mg PO .as directed Qty: 60 3RF Rx Instructions: Take 10 mg ( 2 tablets ) in morning and 10 mg ( 2 tablets ) in the evening for 2 days After 2 days take 5 mg ( 1 tablet ) in the morning and 5 mg ( 1 tablet ) in the evening for the next 4 months doxycycline monohydrate 100 mg tablet 100 mg PO BID 7 Days Qty: 14 0RF Continued folic acid 400 mcg 400 mcg PO DAILY Daily Vitamin Formula-Iron 18-400 mg-mcg tablet 1 tab PO DAILY lisinopril 10 mg tablet 10 mg PO DAILY rosuvastatin [Crestor] 20 mg tablet 20 mg PO DAILY Changed insulin degludec [Tresiba FlexTouch U-100] 100 unit/mL (3 mL) insulin pen 45 unit SUBCUT DAILY Qty: 0 0RF Print Language: Georgian Activity Restrictions/Additional Instructions: I may not have addressed or treated all of your medical illnesses or the abnormal blood work or imaging studies during this hospitalization. Please ask your primary care provider to obtain [facility] records entirely to follow up on all of the abnormal physical, laboratory, and imaging findings that I have not addressed. Please return back to the emergency room or seek medical attention if your symptoms worsen or return. Check your blood sugar 3 times a day before meals. Document these numbers on a blood glucose log and bring them with you to your follow-up appointment with your primary care doctor. Communicate with your primary care doctor or web application dev specialist if your blood sugar is under 100 or above 300 on 2 consecutive checks. Communicate with your primary care doctor or web application dev specialist if you have any questions about your diabetes medications. Signs of a low blood sugar include sweating, racing heart, dizziness and/or weakness. Check your blood sugar if you have any of the symptoms. Discharging you from [place] does not mean that your medical care ends here and now. You may still need additional monitoring, work up, investigation, and treatment plan to be handled from this point on by out patient providers including your primary care provider and specialists. For any medication question, please contact your retail pharmacist or your primary care provider. Thank you. Forms: Portal Instructions Follow Up Appointments: Please call Dr. Masterson for a follow up appt. for 5-7 days [phone]
--- NOTE | 2024-11-23 13:57 | PC.NURSE ---
iv dc'd for discharge. instructions explained to pt, verbalized understanding. belongings packed per pt, dressed per self. taken to exit via wheelchair, discharged to private vehicle.
--- NOTE | 2024-11-24 09:09 | PC.NURSE ---
Follow up appt. on 11/[address] Solomon's [employer] [facility] [phone]
--- NOTE | 2024-11-24 12:06 | CM.DCFOLLOWU ---
Person spoke with:Chencho How are you feeling? Much better How is your pain? No pain Did you understand your discharge instructions? Yes Do you have any questions about your discharge instructions? No Were you given any prescriptions at discharge? Yes Were you able to get your prescriptions filled? He is picking them up now Do you understand how to take your medications as ordered? Yes Do you have any questions about your follow up appointment and do you plan to keep your follow up appointment? No questions. The patient was provided information about his appt with KIESHA Enciso at Dr. Berry on . 11/30 at 11 am Is there anything else that you would like to discuss? No Questions/Comments/Concerns/Other:
== END 2024-11-23 13:57 | disposition home or self-care (01) | DRG 872 ==
LOC: ER 18:27 → MS 20:03
PROVIDERS: Hospitalist; Physician Assistant; Admitting Provider Internal Medicine; Emergency Provider Emergency Medicine; PCP Internal Medicine; Visit Provider Internal Medicine
DX: A41.9 Sepsis, unspecified organism (principal); L03.115 Cellulitis of right lower limb; I82.411 Acute embolism and thrombosis of right femoral vein; N17.9 Acute kidney failure, unspecified; E87.1 Hypo-osmolality and hyponatremia; I82.811 Embolism and thrombosis of superficial veins of right lower extremity; E11.42 Type 2 diabetes mellitus with diabetic polyneuropathy; E11.319 Type 2 diabetes mellitus with unspecified diabetic retinopathy without macular edema; Z79.4 Long term (current) use of insulin; Z85.828 Personal history of other malignant neoplasm of skin; R65.20 Severe sepsis without septic shock; D64.9 Anemia, unspecified; Z79.899 Other long term (current) drug therapy; B02.9 Zoster without complications; I10 Essential (primary) hypertension
CPT/HCPCS: 36415; 73630; 73721; 80048; 80053; 82550; 82948; 83036; 83605; 85025; 85027; 85610; 85652; 85730; 86140; 87040; 93971; 96365; 96366; 96367; 99285; G0378; J0690; J0696; J3373